=== PATIENT | male | born 1965 | race Caucasian/White ===

== ENCOUNTER 2019-01-16 12:45 | Emergency (ER) | payer SELFPAY ==
[2019-01-16 14:29] LABS: APPEARANCE,URINE CLEAR; BILIRUBIN,URINE NEGATIVE (NEGATIVE); COLOR,URINE COLORLESS; GLUCOSE, URINE NEGATIVE (NEGATIVE); KETONES,URINE NEGATIVE (NEGATIVE); LEUKOCYTE ESTERASE,URINE NEGATIVE (NEGATIVE); NITRITE,URINE NEGATIVE (NEGATIVE); PROTEIN,URINE NEGATIVE (NEGATIVE); URINE SPECIFIC GRAVITY 1.003; UROBILINOGEN,URINE NEGATIVE mg/dL (<2.0)
[2019-01-16 14:32] LABS: ABSOLUTE EOSINOPHILS # (AUTO) 0.1 10^3/uL (0.0-0.6); ABSOLUTE LYMPHOCYTES (AUTO) 2.1 10^3/uL (0.5-4.7); ABSOLUTE MONOCYTES (AUTO) 0.4 10^3/uL (0.1-1.4); ABSOLUTE NEUT (AUTO) 2.9 10^3/uL (1.7-8.2); BASOPHILS % (AUTO) 0.5 % (0-2); EOSINOPHILS % (AUTO) 1.9 % (0-6); HEMATOCRIT 42.8 % (37.9-51.0); HEMOGLOBIN 14.8 g/dL (13.5-17.0); LYMPHOCYTES % (AUTO) 38.3 % (13-45); MEAN CORPUSCULAR HEMOGLOBIN 30.6 pg (27.0-33.4); MEAN CORPUSCULAR HGB CONC 34.5 g/dL (32.0-36.0); MEAN CORPUSCULAR VOLUME 89 fl (80-97); MONOCYTES % (AUTO) 6.6 % (3-13); PLATELET COUNT 170 10^3/uL (150-450); RED BLOOD COUNT 4.81 10^6/uL (4.35-5.55); RED CELL DISTRIBUTION WIDTH 14.5 % (11.5-14.0); SEGMENTED NEUTROPHILS % (AUTO) 52.7 % (42-78); TOTAL CELLS COUNTED % (AUTO) 100 %; WHITE BLOOD COUNT 5.5 10^3/uL (4.0-10.5)
[2019-01-16 14:51] LABS: ALBUMIN 3.8 g/dL (3.5-5.0); ALKALINE PHOSPHATASE 66 U/L (38-126); ANION GAP 6 (5-19); ASPARTATE AMINO TRANSFERASE 33 U/L (17-59); BILIRUBIN,DIRECT 0.1 mg/dL (0.0-0.4); BILIRUBIN,TOTAL 0.4 mg/dL (0.2-1.3); BLOOD UREA NITROGEN 11 mg/dL (7-20); CALCIUM 9.2 mg/dL (8.4-10.2); CARBON DIOXIDE 25 mmol/L (22-30); CHLORIDE 107 mmol/L (98-107); GLUCOSE 87 mg/dL (75-110); POTASSIUM 3.8 mmol/L (3.6-5.0); TOTAL PROTEIN 6.5 g/dL (6.3-8.2)
[2019-01-16] MEDS ORDERED: KETOROLAC TROMETHAMINE 60 MG/2 ML SDV IM ONE (16:44)
--- NOTE | 2019-01-16 16:48 | ER Document Report ---
ED General Pain - General Chief Complaint: Low Back Pain Stated Complaint: BACK PAIN Time Seen by Provider: 01/16/19 16:14 Primary Care Provider: VIDA FENTON MD [Primary Care Provider] - Follow up as needed Mode of Arrival: Ambulatory Information source: Patient - HPI Patient complains to provider of: LBP Onset: Other - Pt. with h/o LBP with radiation into his R buttock and R upper leg for the past 2-3 days. Denies h/o trauma. No change in bowel or bladder habits - Related Data Allergies/Adverse Reactions: No Known Allergies Allergy (Verified 01/16/19 17:56) Home Medications: Plavix. coumadin. lisinopril. metoprolol. ASA 81. Paxil Past Medical History - General Information source: Patient - Social History Smoking Status: Current Every Day Smoker Chew tobacco use (# tins/day): No Frequency of alcohol use: Occasional Family History: Reviewed & Not Pertinent Patient has suicidal ideation: No Patient has homicidal ideation: No - Past Medical History Cardiac Medical History: Reports: Hx Heart Attack - With stent placement x4, Hx Hypertension Past Surgical History: Reports: Hx Cardiac Catheterization, Hx Cholecystectomy, Hx Pacemaker - Immunizations Immunizations up to date: Yes Review of Systems - Review of Systems Constitutional: No symptoms reported EENT: No symptoms reported Cardiovascular: No symptoms reported Respiratory: No symptoms reported Gastrointestinal: No symptoms reported Musculoskeletal: See HPI, Back pain Neurological/Psychological: No symptoms reported -: Yes All other systems reviewed and negative Physical Exam - Vital signs Vitals: Pulse Resp BP Pulse Ox 74 18 139/89 H 99 01/16/19 13:56 01/16/19 13:56 01/16/19 13:56 01/16/19 13:56 - General General appearance: Appears well In distress: None - Respiratory Respiratory status: No respiratory distress Breath sounds: Normal - Cardiovascular Rhythm: Regular Heart sounds: Normal auscultation Murmur: No - Abdominal Inspection: Normal Tenderness: Nontender - Back Back: Tender - there is min TTP of the R lumber spine diffusely with positive SLR at approx 45 degrees. N/V intact - Extremities General upper extremity: Normal inspection General lower extremity: Normal inspection - Neurological Neuro grossly intact: Yes Cognition: Normal Orientation: AAOx4 Speech: Normal Motor strength normal: LUE, RUE, LLE, RLE Sensory: Normal Course - Re-evaluation Re-evalutation: 01/16/19 18:09 pt's exam essentially unchanged from priors -- he has expressed desire to go home - Vital Signs Vital signs: Temp Pulse Resp BP Pulse Ox 97.3 F 69 16 154/90 H 99 01/16/19 17:54 01/16/19 17:54 01/16/19 17:54 01/16/19 17:54 01/16/19 17:54 - Laboratory Result Diagrams: 01/16/19 14:20 01/16/19 14:20 Laboratory results interpreted by me: 01/16/19 14:20 RDW 14.5 H - Diagnostic Test Radiology reviewed: Reports reviewed - plus degenerative arthritis of the lumbar spine and facet arthropathy Discharge - Discharge Clinical Impression: Lumbar radicular syndrome Condition: Stable Disposition: HOME, SELF-CARE Instructions: Ice Packs ([facility]), Low Back Pain ([facility]), Pain Medication Injection ([facility]), Oral Narcotic Medication ([facility]), Warm Packs ([facility]) Additional Instructions: rest, take meds as prescribed, return if worse Prescriptions: Methylprednisolone [Medrol Dosepack (4 mg/Tab) 21 Tab/Dosepak] 4 mg PO ASDIR PRN #21 tab.ds.pk PRN Reason: Tramadol HCl [Ultram] 50 mg PO BID #14 tablet Referrals: VIDA FENTON MD [Primary Care Provider] - Follow up as needed
--- NOTE | 2019-01-16 17:12 | RADIOLOGY REPORT (SQ) ---
EXAM DESCRIPTION: CT LUMBAR SPINE WITHOUT COMPLETED DATE/TIME: 01/16/2019 4:58 pm REASON FOR STUDY: LBP COMPARISON: None. TECHNIQUE: Axial images acquired through the lumbar spine without intravenous contrast. Images revi ewed with lung, soft tissue and bone windows. Reconstructed coronal and sagittal MPR images reviewed . All images stored on PACS. All CT scanners at this facility use dose modulation, iterative reconstruction, and/or weight based d osing when appropriate to reduce radiation dose to as low as reasonably achievable (ALARA). [facility]: Dose Right [facility]: CareDose [facility]: Dose Right [facility]: Teradose 4D [facility]: [employer] LIMITATIONS: None. FINDINGS: SEGMENTATION: There are 5 lumbar-type vertebral bodies. There is no transitional anatomy at the lumbosacral junction ALIGNMENT: Mild dextroconvex scoliotic curvature of the lumbar spine centered at L2-L3. There is no spondylolisthesis VERTEBRAL BODIES: The lumbar vertebral body heights are preserved. There is no fracture. DISCS: Spondylitic findings from L3-L4 to L5-S1 including narrowing of the intervertebral disc space, vacuum disc phenomenon, endplate sclerosis, endplate osteophyte formation, and a Schmorl's node at t he superior endplate of L4. PEDICLES, TRANSVERSE PROCESSES: Intact. FACETS, POSTERIOR ELEMENTS: No acute findings. HARDWARE: None. VISUALIZED RIBS: No fractures. SOFT TISSUES: Aneurysmal dilatation of the infrarenal abdominal aorta measuring up to 3.1 cm in AP di ameter. OTHER: Mild to moderate osteophytic foraminal stenosis at L5-S1. There is no high-grade spinal steno sis. IMPRESSION: 1. Degenerative spondylosis and facet arthropathy of the lumbar spine from L3-L4 to L5-S 1. There is no acute fracture or malalignment of the lumbar spine. 2. Aneurysmal dilatation of the infrarenal abdominal aorta measuring up to 3.1 cm and AP diameter. TECHNICAL DOCUMENTATION: JOB ID: [id number] Quality ID # [id number]: Final reports with documentation of one or more dose reduction techniques (e.g., Au tomated exposure control, adjustment of the mA and/or kV according to patient size, use of iterative reconstruction technique) 2010 [employer]- All Rights Reserved Reading location - IP/workstation name: [email or web address]
[2019-01-16 17:56] VITALS: BP 154/90
== END 2019-01-16 18:16 | disposition home or self-care (01) ==
LOC: ER 12:45
DX: M54.16 Radiculopathy, lumbar region (principal); F17.200 Nicotine dependence, unspecified, uncomplicated; I10 Essential (primary) hypertension; Z79.01 Long term (current) use of anticoagulants; Z79.82 Long term (current) use of aspirin; Z90.49 Acquired absence of other specified parts of digestive tract; Z95.0 Presence of cardiac pacemaker; I25.2 Old myocardial infarction
CPT/HCPCS: 99284; 96372; 36415; 85025; 80053; 81001; 72131; J1885

== ENCOUNTER 2019-02-12 18:40 | Emergency (ER) | payer SELFPAY ==
--- NOTE | 2019-02-12 19:47 | ER Document Report ---
ED Medical Screen (RME) - General Chief Complaint: Low Back Pain Stated Complaint: BACK PAIN,BLADDER ISSUES Time Seen by Provider: 02/12/19 19:40 Primary Care Provider: VIDA FENTON MD [Primary Care Provider] - Follow up as needed Notes: Patient is a 53-year-old male who presents the emergency department with a chief complaint of urinary problems. Patient states that he has had back pain for the past 3 weeks. Patient states that for the past 3 days he has had a little bit of inability to hold his urine. He is able to urinate, but is concurrent discerned about the dribbling. Patient states that he does have a little bit of numbness in his right leg, but denies any weakness. Patient has history of a CVA and is currently on Coumadin. Denies any fever. Denies history of IV drug use. Exam: Soft, nontender abdomen. Normal strength in bilateral lower extremities, but exam limited due to patient being in chair. Patient able to walk. I have greeted and performed a rapid initial assessment of this patient. A comprehensive ED assessment and evaluation of the patient, analysis of test results and completion of medical decision making process will be conducted by an additional ED providers. TRAVEL OUTSIDE OF THE [place] IN LAST 30 DAYS: No - Related Data Allergies/Adverse Reactions: No Known Allergies Allergy (Verified 01/16/19 17:56) Home Medications: plavix 75 mg qday. metoprolol 25 mg qday. lisinopril 20 mg qday. warfarin 15 mg qday. baby asa 81 mg qday Past Medical History - Social History Frequency of alcohol use: Occasional Drug Abuse: None - Past Medical History Cardiac Medical History: Reports: Hx Heart Attack - With stent placement x4, Hx Hypertension Past Surgical History: Reports: Hx Cardiac Catheterization, Hx Cholecystectomy, Hx Pacemaker - Immunizations Immunizations up to date: Yes Doctor's Discharge - Discharge Referrals: VIDA FENTON MD [Primary Care Provider] - Follow up as needed
[2019-02-12 20:12] LABS: AMORPHOUS SEDIMENT,URINE TRACE /HPF; APPEARANCE,URINE SLIGHTLY-CLOUDY; BILIRUBIN,URINE NEGATIVE (NEGATIVE); COLOR,URINE YELLOW; GLUCOSE, URINE NEGATIVE (NEGATIVE); KETONES,URINE NEGATIVE (NEGATIVE); PROTEIN,URINE NEGATIVE (NEGATIVE)
[2019-02-12 20:14] LABS: ABSOLUTE BASOPHILS # (AUTO) 0.1 10^3/uL (0.0-0.2); ABSOLUTE EOSINOPHILS # (AUTO) 0.1 10^3/uL (0.0-0.6); ABSOLUTE LYMPHOCYTES (AUTO) 2.6 10^3/uL (0.5-4.7); ABSOLUTE MONOCYTES (AUTO) 0.6 10^3/uL (0.1-1.4); ABSOLUTE NEUT (AUTO) 3.8 10^3/uL (1.7-8.2); BASOPHILS % (AUTO) 0.8 % (0-2); EOSINOPHILS % (AUTO) 1.5 % (0-6); LYMPHOCYTES % (AUTO) 36.5 % (13-45); MEAN CORPUSCULAR HEMOGLOBIN 30.7 pg (27.0-33.4); MEAN CORPUSCULAR VOLUME 90 fl (80-97); MONOCYTES % (AUTO) 7.8 % (3-13); PLATELET COUNT 167 10^3/uL (150-450); RED BLOOD COUNT 4.87 10^6/uL (4.35-5.55); RED CELL DISTRIBUTION WIDTH 14.4 % (11.5-14.0); SEGMENTED NEUTROPHILS % (AUTO) 53.4 % (42-78); TOTAL CELLS COUNTED % (AUTO) 100 %; WHITE BLOOD COUNT 7.2 10^3/uL (4.0-10.5)
--- NOTE | 2019-02-12 21:44 | ER Document Report ---
ED General - General Chief Complaint: Low Back Pain Stated Complaint: BACK PAIN,BLADDER ISSUES Time Seen by Provider: 02/12/19 19:40 Primary Care Provider: VIDA FENTON MD [Primary Care Provider] - Follow up as needed Notes: Patient is a 53-year-old male who comes emergency department for chief complaint of ongoing back pain, this is in the lower back usually worse on the right, occasionally he will get shooting pain or numbness on the right side but this is normal for him. He also states that over the past few days he has noticed he is able to urinate but sometimes he will have some dribbling or hesitancy. He denies dysuria. He denies abdominal or genital pain. He denies nausea or vomiting. He denies any new numbness, denies bowel incontinence, he is able to ambulate. He states that he has trouble sleeping because his back always hurts. He had a CT here last month but he is not sure of the results. Past medical history of CAD with stents on Coumadin and Plavix, AICD, cholecystectomy. TRAVEL OUTSIDE OF THE [place] IN LAST 30 DAYS: No - Related Data Allergies/Adverse Reactions: No Known Allergies Allergy (Verified 01/16/19 17:56) Home Medications: plavix 75 mg qday. metoprolol 25 mg qday. lisinopril 20 mg qday. warfarin 15 mg qday. baby asa 81 mg qday Past Medical History - General Information source: Patient - Social History Smoking Status: Current Every Day Smoker Frequency of alcohol use: Occasional Drug Abuse: None Lives with: Family Family History: Reviewed & Not Pertinent Patient has suicidal ideation: No Patient has homicidal ideation: No - Past Medical History Cardiac Medical History: Reports: Hx Heart Attack - With stent placement x4, Hx Hypertension Past Surgical History: Reports: Hx Cardiac Catheterization, Hx Cholecystectomy, Hx Pacemaker - Immunizations Immunizations up to date: Yes Review of Systems - Review of Systems Constitutional: No symptoms reported EENT: No symptoms reported Cardiovascular: No symptoms reported Respiratory: No symptoms reported Gastrointestinal: No symptoms reported Genitourinary: See HPI Male Genitourinary: See HPI Musculoskeletal: See HPI Skin: No symptoms reported Hematologic/Lymphatic: No symptoms reported Neurological/Psychological: No symptoms reported Physical Exam - Notes Notes: GENERAL: Alert, interacts well. Sleeping but easily aroused. Some discomfort with position changes but otherwise no signs of distress. HEAD: Normocephalic, atraumatic. EYES: Pupils equal, round, and reactive to light. Extraocular movements intact. ENT: Oral mucosa moist, tongue midline. Oropharynx unremarkable. Airway patent. NECK: Full range of motion. Supple. Trachea midline. LUNGS: Clear to auscultation bilaterally, no wheezes, rales, or rhonchi. No respiratory distress. HEART: Regular rate and rhythm. No murmur ABDOMEN: Soft, non-tender. Non-distended. GENITOURINARY: No tenderness or swelling EXTREMITIES: Moves all 4 extremities spontaneously. No edema, normal radial and dorsalis pedis pulses bilaterally. No cyanosis. BACK: Palpable tenderness along the right paralumbar musculature with tight muscle fibers. No cervical, thoracic, lumbar midline tenderness. No saddle anesthesia, normal distal neurovascular exam with good dorsalis pedis pulses bilaterally. Moves all extremities in full range of motion. Ambulates without difficulty. NEUROLOGICAL: Alert and oriented x3. Normal speech. Cranial nerves II through XII grossly intact. PSYCH: Normal affect, normal mood. SKIN: Warm, dry, normal turgor. No rashes or lesions noted. Course - Re-evaluation Re-evalutation: Patient was able to urinate for us without difficulty. He still is complaining of some hesitancy, I offered to check his prostate but he declined, he states he would rather be treated for this and follow-up with his primary care for additional testing and treatment of his prostate. Patient does not have any new symptoms in regards to his back, he did request a copy of his CT from last month, this does show 3.1 cm AAA and mild to moderate stenosis at L5-S1 with degenerative changes at L3-L4 as well. Patient does not have any injury, denies history of IV drug abuse, does not have fever, urinalysis unremarkable, CBC unremarkable, chemistry unremarkable. Patient is requesting Flexeril because he has had good results with this in the past. Patient was sleeping and easily aroused on my evaluation, he does have tenderness along the right paralumbar musculature without any neurological deficits at this time. He is able to ambulate. Low suspicion of aortic dissection or spinal cord compression based on his evaluation. Discussed strict follow-up and return precautions with patient at length. Patient states appreciation and agreement. - Laboratory Result Diagrams: 02/12/19 20:05 11/20/19 20:05 Laboratory results interpreted by me: 02/12/19 02/12/19 02/12/19 19:53 20:05 20:05 RDW 14.4 H Chloride 111 H Urine Urobilinogen 2.0 H Discharge - Discharge Clinical Impression: Urinary hesitancy Lower back pain Qualifiers: Chronicity: chronic Back pain laterality: right Sciatica presence: without sciatica Qualified Code(s): M54.5 - Low back pain Condition: Stable Disposition: HOME, SELF-CARE Additional Instructions: Your imaging last month and ongoing symptoms indicate chronic back pain with degenerative changes. Take the muscle ex as prescribed, apply heat to your lower back especially on the right, avoid lifting and twisting if possible. Take the report to your primary care for additional evaluation and management. Your laboratory work-up is reassuring, your symptoms are very suggestive of developing enlarged prostate. Take the Flomax as prescribed and follow-up with primary care for additional management of this as well. Come back if you worsen including severe worsening pain, fever, vomiting, new numbness, inability to urinate, losing control of your bowels, or any other concerning symptoms. Prescriptions: Cyclobenzaprine HCl [Flexeril 5 mg Tablet] 1 - 2 tab PO TID PRN #30 tablet PRN Reason: Tamsulosin HCl [Flomax 0.4 mg Cap.sr] 0.4 mg PO DAILY #14 cap.sr.24h Forms: Return to Work Referrals: VIDA FENTON MD [Primary Care Provider] - Follow up as needed
[2019-02-12 21:48] LABS: ALBUMIN 3.6 g/dL (3.5-5.0); ALKALINE PHOSPHATASE 66 U/L (38-126); ANION GAP 9 (5-19); ASPARTATE AMINO TRANSFERASE 21 U/L (17-59); BILIRUBIN,DIRECT 0.2 mg/dL (0.0-0.4); BILIRUBIN,TOTAL 0.4 mg/dL (0.2-1.3); BLOOD UREA NITROGEN 12 mg/dL (7-20); CALCIUM 9.5 mg/dL (8.4-10.2); CARBON DIOXIDE 22 mmol/L (22-30); CHLORIDE 111 mmol/L (98-107); GLUCOSE 88 mg/dL (75-110); POTASSIUM 3.9 mmol/L (3.6-5.0); TOTAL PROTEIN 6.4 g/dL (6.3-8.2)
[2019-02-12] MEDS ORDERED: HYDROCODONE/ACETAMINOPHEN 5-325 MG (6 TAB/ER DISP) PO PRN (22:01)
[2019-02-12] MEDS ORDERED: TAMSULOSIN HCL 0.4 MG CAP.SR.24H PO ONE (22:01)
[2019-02-12 22:43] VITALS: BP 150/87
== END 2019-02-12 22:42 | disposition home or self-care (01) ==
LOC: ER 18:40
DX: R39.11 Hesitancy of micturition (principal); M54.5 Low back pain; F17.200 Nicotine dependence, unspecified, uncomplicated; I10 Essential (primary) hypertension; Z79.01 Long term (current) use of anticoagulants; Z79.82 Long term (current) use of aspirin; I25.2 Old myocardial infarction; Z90.49 Acquired absence of other specified parts of digestive tract; Z95.810 Presence of automatic (implantable) cardiac defibrillator
CPT/HCPCS: 36415; 80053; 81001; 85025; 99283

== ENCOUNTER 2019-03-03 18:14 | Emergency (ER) | payer SELFPAY ==
--- NOTE | 2019-03-03 19:10 | ER Document Report ---
ED Medical Screen (RME) - General Chief Complaint: Leg Pain Stated Complaint: LEFT LEG PAIN Time Seen by Provider: 03/03/19 19:05 Primary Care Provider: VIDA FENTON MD [Primary Care Provider] - Follow up as needed Mode of Arrival: Ambulatory Information source: Patient Notes: 53-year-old male presented to ED for complaint of pain and swelling to the left thigh area. He states he does have a history of previous DVTs. He is on Plavix and Coumadin. He states he has had 2 heart attacks has forced cardiac stents had a stroke last year is on Plavix and Coumadin." History has been updated I have greeted and performed a rapid initial assessment of this patient. A comprehensive ED assessment and evaluation of the patient, analysis of test results and completion of medical decision making process will be conducted by an additional ED providers. TRAVEL OUTSIDE OF THE [place] IN LAST 30 DAYS: No - Related Data Allergies/Adverse Reactions: No Known Allergies Allergy (Verified 01/16/19 17:56) Past Medical History - Social History Cigarette use (# per day): Yes - Half pack a day Frequency of alcohol use: Occasional Drug Abuse: None Lives with: Family Family history: Reviewed & Not Pertinent - Past Medical History Cardiac Medical History: Reports: Hx Coronary Artery Disease, Hx DVT, Hx Heart Attack - With stent placement x4, Hx Hypercholesterolemia, Hx Hypertension Pulmonary Medical History: Reports: None EENT Medical History: Reports: None Neurological Medical History: Reports: Hx Cerebrovascular Accident - X1 in 2018 Endocrine Medical History: Reports: None Renal/ Medical History: Reports: None Malignancy Medical History: Reports None GI Medical History: Reports: None Musculoskeltal Medical History: Reports Hx Arthritis Skin Medical History: Reports None Psychiatric Medical History: Reports: None Traumatic Medical History: Reports: None Infectious Medical History: Reports: None Past Surgical History: Reports: Hx Cardiac Catheterization, Hx Cholecystectomy, Hx Coronary Stent - 4, Hx Pacemaker - Pacemaker defibrillator - Immunizations Immunizations up to date: No Hx Diphtheria, Pertussis, Tetanus Vaccination: No Physical Exam - Vital signs Vitals: Temp Pulse Resp BP Pulse Ox 97.9 F 87 18 153/89 H 100 03/03/19 18:18 03/03/19 18:18 03/03/19 18:18 03/03/19 18:18 03/03/19 18:18 Course - Vital Signs Vital signs: Temp Pulse Resp BP Pulse Ox 97.9 F 87 18 153/89 H 100 03/03/19 18:18 03/03/19 18:18 03/03/19 18:18 03/03/19 18:18 03/03/19 18:18 Doctor's Discharge - Discharge Referrals: VIDA FENTON MD [Primary Care Provider] - Follow up as needed
[2019-03-03 20:11] LABS: ABSOLUTE EOSINOPHILS # (AUTO) 0.2 10^3/uL (0.0-0.6); ABSOLUTE LYMPHOCYTES (AUTO) 3.3 10^3/uL (0.5-4.7); ABSOLUTE MONOCYTES (AUTO) 0.7 10^3/uL (0.1-1.4); ABSOLUTE NEUT (AUTO) 5.4 10^3/uL (1.7-8.2); BASOPHILS % (AUTO) 0.5 % (0-2); HEMATOCRIT 49.2 % (37.9-51.0); HEMOGLOBIN 16.8 g/dL (13.5-17.0); LYMPHOCYTES % (AUTO) 34.3 % (13-45); MEAN CORPUSCULAR HEMOGLOBIN 30.7 pg (27.0-33.4); MEAN CORPUSCULAR HGB CONC 34.3 g/dL (32.0-36.0); MEAN CORPUSCULAR VOLUME 90 fl (80-97); MONOCYTES % (AUTO) 7.4 % (3-13); PLATELET COUNT 175 10^3/uL (150-450); RED BLOOD COUNT 5.48 10^6/uL (4.35-5.55); SEGMENTED NEUTROPHILS % (AUTO) 55.8 % (42-78); TOTAL CELLS COUNTED % (AUTO) 100 %; WHITE BLOOD COUNT 9.6 10^3/uL (4.0-10.5)
[2019-03-03 20:17] LABS: INTERNATIONAL RATION (INR) 1.19; PROTHROMBIN TIME 15.2 SEC (11.4-15.4)
[2019-03-03 20:18] LABS: PARTIAL THROMBOPLASTIN TIME 32.3 SEC (23.5-35.8)
[2019-03-03 20:24] LABS: ALBUMIN 4.4 g/dL (3.5-5.0); ALKALINE PHOSPHATASE 66 U/L (38-126); ANION GAP 9 (5-19); ASPARTATE AMINO TRANSFERASE 22 U/L (17-59); BILIRUBIN,DIRECT 0.2 mg/dL (0.0-0.4); BILIRUBIN,TOTAL 0.4 mg/dL (0.2-1.3); BLOOD UREA NITROGEN 11 mg/dL (7-20); CALCIUM 9.6 mg/dL (8.4-10.2); CARBON DIOXIDE 26 mmol/L (22-30); CHLORIDE 105 mmol/L (98-107); GLUCOSE 82 mg/dL (75-110); POTASSIUM 3.9 mmol/L (3.6-5.0); TOTAL PROTEIN 7.4 g/dL (6.3-8.2)
--- NOTE | 2019-03-03 22:51 | ER Document Report ---
ED Extremity Problem, Lower - General Chief Complaint: Swelling of Lower Extremity Stated Complaint: LEFT LEG PAIN Time Seen by Provider: 03/03/19 19:05 Primary Care Provider: VIDA FENTON MD [Primary Care Provider] - Follow up as needed Mode of Arrival: Ambulatory Information source: Patient Notes: Mr. Plascencia is a 53 yo m w/ PMH tension, hyperlipidemia, CAD with [address], 2 previous MIs, previous stroke on chronic Plavix and Coumadin presenting to the ED for left upper thigh redness and tenderness. Patient states he noticed it yesterday when the dog was lying on his lap. It is primarily present the medial surface of his left thigh. Patient denies any lower extremity edema in either calf. He states that he was unsure what this was so he presented to the ED for evaluation. Patient states that he is currently taking both Plavix and Coumadin as well as a baby aspirin daily. He denies any missed doses of his Coumadin. Patient takes Coumadin 15 mg nightly. TRAVEL OUTSIDE OF THE [place] IN LAST 30 DAYS: No - Related Data Allergies/Adverse Reactions: No Known Allergies Allergy (Verified 01/16/19 17:56) Home Medications: Warfarin, Plavix Past Medical History - General Information source: Patient - Social History Smoking Status: Current Every Day Smoker Cigarette use (# per day): Yes - Half pack a day Frequency of alcohol use: Occasional Drug Abuse: None Lives with: Family Family History: Reviewed & Not Pertinent Patient has suicidal ideation: No Patient has homicidal ideation: No - Past Medical History Cardiac Medical History: Reports: Hx Coronary Artery Disease, Hx DVT, Hx Heart Attack - With stent placement x4, Hx Hypercholesterolemia, Hx Hypertension Pulmonary Medical History: Reports: None EENT Medical History: Reports: None Neurological Medical History: Reports: Hx Cerebrovascular Accident - X1 in 2018 Endocrine Medical History: Reports: None Renal/ Medical History: Reports: None Malignancy Medical History: Reports None GI Medical History: Reports: None Musculoskeletal Medical History: Reports Hx Arthritis Skin Medical History: Reports None Psychiatric Medical History: Reports: None Traumatic Medical History: Reports: None Infectious Medical History: Reports: None Past Surgical History: Reports: Hx Cardiac Catheterization, Hx Cholecystectomy, Hx Coronary Stent - 4, Hx Pacemaker - Pacemaker defibrillator - Immunizations Immunizations up to date: No Hx Diphtheria, Pertussis, Tetanus Vaccination: No Review of Systems - Review of Systems Constitutional: See HPI EENT: No symptoms reported Cardiovascular: No symptoms reported Respiratory: No symptoms reported Gastrointestinal: No symptoms reported Genitourinary: No symptoms reported Male Genitourinary: No symptoms reported Musculoskeletal: See HPI Skin: See HPI Hematologic/Lymphatic: No symptoms reported Neurological/Psychological: No symptoms reported Physical Exam - Vital signs Vitals: Temp Pulse Resp BP Pulse Ox 97.9 F 87 18 153/89 H 100 03/03/19 18:18 03/03/19 18:18 03/03/19 18:18 03/03/19 18:18 03/03/19 18:18 Interpretation: Hypertensive - General General appearance: Appears well, Alert - HEENT Head: Normocephalic, Atraumatic Eyes: Normal Pupils: PERRL - Respiratory Respiratory status: No respiratory distress Chest status: Nontender Breath sounds: Normal Chest palpation: Normal - Cardiovascular Rhythm: Regular Heart sounds: Normal auscultation Murmur: No - Abdominal Inspection: Normal Distension: No distension Bowel sounds: Normal Tenderness: Nontender Organomegaly: No organomegaly - Back Back: Normal, Nontender - Extremities General upper extremity: Normal inspection, Nontender, Normal color, Normal ROM, Normal temperature General lower extremity: Normal inspection, Nontender, Normal color, Normal ROM, Normal temperature, Normal weight bearing. No: Esha's sign - Neurological Neuro grossly intact: Yes Cognition: Normal Orientation: AAOx4 Shailesh Coma Scale Eye Opening: Spontaneous Shailesh Coma Scale Verbal: Oriented [place] Coma Scale Motor: Obeys Commands [place] Coma Scale Total: 15 Speech: Normal Motor strength normal: LUE, RUE, LLE, RLE Sensory: Normal - Psychological Associated symptoms: Normal affect, Normal mood - Skin Skin Temperature: Warm Skin Moisture: Dry Skin Color: Normal Skin irregularity: Erythema Location of irregularity: Extremities - Mild tenderness to palpation and erythema to the left medial thigh. No lower extremity edema in bilateral calf. Negative Homans sign bilaterally. Course - Re-evaluation Re-evalutation: Well-appearing nontoxic. Initial vitals notable for mildly elevated blood pressure. Differential diagnosis includes DVT, thrombophlebitis, cellulitis, contusion 03/03/19 23:01 CBC and CMP within normal limits. PT/INR is notable for a subtherapeutic INR of 1.19. Patient is adamant he has not missed any doses of his Coumadin takes 15 mg nightly. Ultrasound was performed from triage and does not show evidence of DVT. However it does show evidence of a superficial thrombophlebitis in the greater saphenous vein. Recommended that the patient double his Coumadin this evening and take a full 30 mg and then return back to 15 mg tomorrow evening. I recommended the patient call his primary care doctor as soon as possible to get a repeat INR performed sometime this week, before Sunday. Patient amenable to this plan. Patient's labs including INR will be printed for him and he will be provided with those results to go home with so he can follow-up. Patient given return precautions and instructed to double his Coumadin this evening and then return back to 15 mg over the next few days. - Vital Signs Vital signs: Temp Pulse Resp BP Pulse Ox 97.9 F 87 18 153/89 H 100 03/03/19 19:05 03/03/19 18:18 03/03/19 19:05 03/03/19 18:18 03/03/19 19:05 - Laboratory Result Diagrams: 03/03/19 19:47 03/03/19 19:47 Discharge - Discharge Clinical Impression: Superficial thrombophlebitis of left leg, Left thigh pain, Subtherapeutic international normalized ratio (INR) Condition: Good Disposition: HOME, SELF-CARE Instructions: Superficial Phlebitis ([facility]) Additional Instructions: Your INR is quite low today at 1.19. I would recommend that you double your Coumadin from your normal 15 mg to 30 mg this evening only. Sunday, you can return back to your nightly 15 mg as routine. I would also recommend that first and Sunday morning, you call your primary care doctor to have your INR rechecked sometime this week. They will be able to further guide you regarding your dosing of your Coumadin. Return to the ED if you have worsening pain, swelling or difficulty walking. Referrals: VIDA FENTON MD [Primary Care Provider] - Follow up as needed
[2019-03-04 00:45] VITALS: BP 148/83
--- NOTE | 2019-03-04 08:21 | XCELERA REPORT ---
[address] [address] Lower Extremity Venous Evaluation Procedure: Color flow and duplex imaging of the veins of the left lower extremity as well as the right Common Femoral vein. Right Sided Venous Evaluation The right common femoral vein is fully compressible. Spontaneous and phasic flow is present in the right common femoral vein. Left Sided Venous Evaluation Echogenic content, no flow in the Greater Saphenous vein, from knee to thigh, , also in Small Saphenous vein. Otherwise normal vessel filling wall to wall, compression and augmentation as well as Colour flow down to the infrageniculate veins. Interpretation Summary No duplex evidence of DVT or obstruction in the left lower extremity nor in the right Common Femoral vein. There is superficial phlebitis in the Greater and Small Saphenous veins on the left. Name: GUY GARCIA Age: 53 yrs Gender: Male : 1965 Patient Status: Emergency Patient Location: ER Study Date: 03/03/2019 08:49 PM Reason For Study: left lower leg pain and swelling hx dvt Ordering Physician: WILL SNYDER Performed By: Sena Jacob : WILL SNYDER > Josh Johnson
== END 2019-03-04 00:27 | disposition home or self-care (01) ==
LOC: ER 18:14
DX: I80.02 Phlebitis and thrombophlebitis of superficial vessels of left lower extremity (principal); M79.652 Pain in left thigh; I25.10 Atherosclerotic heart disease of native coronary artery without angina pectoris; I10 Essential (primary) hypertension; I25.2 Old myocardial infarction; Z86.73 Personal history of transient ischemic attack (TIA), and cerebral infarction without residual deficits; Z79.02 Long term (current) use of antithrombotics/antiplatelets; Z79.01 Long term (current) use of anticoagulants; Z79.82 Long term (current) use of aspirin; Z95.5 Presence of coronary angioplasty implant and graft; F17.210 Nicotine dependence, cigarettes, uncomplicated; Z95.810 Presence of automatic (implantable) cardiac defibrillator
CPT/HCPCS: 36415; 80053; 85025; 85610; 85730; 93971; 99284

== ENCOUNTER 2019-03-28 12:32 | Inpatient (IN) | payer OTHER ==
--- NOTE | 2019-03-28 13:25 | ER Document Report ---
ED Medical Screen (RME) - General Chief Complaint: Chest Pain Stated Complaint: CHEST PAIN Time Seen by Provider: 03/28/19 13:18 Primary Care Provider: VIDA FENTON MD [Primary Care Provider] - Follow up as needed Notes: Patient presents with chest pain that started yesterday with shortness of breath. Patient complains of increased pain with deep inspiration and cough. Patient states pain is been constant. Patient denies any fever nausea or vomiting. Patient does have a history of CAD with stents and a previous CVA. Patient is currently on Plavix, warfarin as well as aspirin. I have greeted and performed a rapid initial assessment of this patient. A comprehensive ED assessment and evaluation of the patient, analysis of test results and completion of the medical decision making process will be conducted by additional ED providers. TRAVEL OUTSIDE OF THE [place] IN LAST 30 DAYS: No - Related Data Allergies/Adverse Reactions: No Known Allergies Allergy (Verified 01/16/19 17:56) Home Medications: plavix toprol asa warfarin lisinopril Past Medical History - Social History Chew tobacco use (# tins/day): No Frequency of alcohol use: Occasional Drug Abuse: None Family history: Reviewed & Not Pertinent - Past Medical History Cardiac Medical History: Reports: Hx Coronary Artery Disease, Hx DVT, Hx Heart Attack - With stent placement x4, Hx Hypercholesterolemia, Hx Hypertension Neurological Medical History: Reports: Hx Cerebrovascular Accident - X1 in 2018 Musculoskeltal Medical History: Reports Hx Arthritis Past Surgical History: Reports: Hx Cardiac Catheterization, Hx Cholecystectomy, Hx Coronary Stent - 4, Hx Pacemaker - Pacemaker defibrillator - Immunizations Immunizations up to date: No Hx Diphtheria, Pertussis, Tetanus Vaccination: No Physical Exam - Vital signs Vitals: Temp Pulse Resp BP Pulse Ox 98.7 F 95 20 116/86 H 96 03/28/19 13:13 03/28/19 13:13 03/28/19 13:13 03/28/19 13:13 03/28/19 13:13 - Respiratory Respiratory status: No respiratory distress Chest status: Pain on movement, Pain with cough Chest palpation: Normal - Cardiovascular Rhythm: Regular Heart sounds: S1 appreciated, S2 appreciated Course - Vital Signs Vital signs: Temp Pulse Resp BP Pulse Ox 98.7 F 95 20 116/86 H 96 03/28/19 13:13 03/28/19 13:13 03/28/19 13:13 03/28/19 13:13 03/28/19 13:13 Doctor's Discharge - Discharge Referrals: VIDA FENTON MD [Primary Care Provider] - Follow up as needed
[2019-03-28 13:56] LABS: ABSOLUTE BASOPHILS # (AUTO) 0.1 10^3/uL (0.0-0.2); ABSOLUTE EOSINOPHILS # (AUTO) 0.1 10^3/uL (0.0-0.6); ABSOLUTE LYMPHOCYTES (AUTO) 2.4 10^3/uL (0.5-4.7); ABSOLUTE MONOCYTES (AUTO) 0.7 10^3/uL (0.1-1.4); ABSOLUTE NEUT (AUTO) 7.8 10^3/uL (1.7-8.2); BASOPHILS % (AUTO) 0.7 % (0-2); EOSINOPHILS % (AUTO) 0.6 % (0-6); HEMATOCRIT 48.5 % (37.9-51.0); HEMOGLOBIN 16.8 g/dL (13.5-17.0); LYMPHOCYTES % (AUTO) 21.7 % (13-45); MEAN CORPUSCULAR HEMOGLOBIN 30.6 pg (27.0-33.4); MEAN CORPUSCULAR HGB CONC 34.7 g/dL (32.0-36.0); MEAN CORPUSCULAR VOLUME 88 fl (80-97); MONOCYTES % (AUTO) 6.5 % (3-13); PLATELET COUNT 161 10^3/uL (150-450); RED CELL DISTRIBUTION WIDTH 13.5 % (11.5-14.0); SEGMENTED NEUTROPHILS % (AUTO) 70.5 % (42-78); TOTAL CELLS COUNTED % (AUTO) 100 %; WHITE BLOOD COUNT 11.1 10^3/uL (4.0-10.5)
[2019-03-28 14:06] LABS: INTERNATIONAL RATION (INR) 0.96; PROTHROMBIN TIME 12.7 SEC (11.4-15.4)
[2019-03-28 14:23] LABS: ALBUMIN 4.3 g/dL (3.5-5.0); ALKALINE PHOSPHATASE 78 U/L (38-126); ANION GAP 10 (5-19); ASPARTATE AMINO TRANSFERASE 21 U/L (17-59); BILIRUBIN,DIRECT 0.2 mg/dL (0.0-0.4); BILIRUBIN,TOTAL 0.8 mg/dL (0.2-1.3); BLOOD UREA NITROGEN 12 mg/dL (7-20); CALCIUM 9.7 mg/dL (8.4-10.2); CARBON DIOXIDE 25 mmol/L (22-30); CHLORIDE 103 mmol/L (98-107); GLUCOSE 91 mg/dL (75-110); POTASSIUM 4.5 mmol/L (3.6-5.0); TOTAL PROTEIN 7.2 g/dL (6.3-8.2)
[2019-03-28 14:35] LABS: NT PRO BNP 262 pg/mL (<125)
[2019-03-28 14:37] LABS: TROPONIN I < 0.012 ng/mL
--- NOTE | 2019-03-28 15:26 | RADIOLOGY REPORT (SQ) ---
EXAM DESCRIPTION: CHEST 2 VIEWS COMPLETED DATE/TIME: 03/28/2019 2:59 pm REASON FOR STUDY: cp COMPARISON: None. EXAM PARAMETERS: NUMBER OF VIEWS: two views TECHNIQUE: Digital Frontal and Lateral radiographic views of the chest acquired. RADIATION DOSE: NA LIMITATIONS: none FINDINGS: LUNGS AND PLEURA: Linear bibasilar opacities. No pleural effusion or pneumothorax. MEDIASTINUM AND HILAR STRUCTURES: No masses or contour abnormalities. HEART AND VASCULAR STRUCTURES: Heart normal size. No evidence for failure. BONES: No acute findings. HARDWARE: Left-sided cardiac pacer/defibrillator with leads overlying right atrium and right ventricl e. OTHER: No other significant finding. IMPRESSION: Linear bibasilar opacities, likely atelectasis/scarring although infection is another co nsideration. TECHNICAL DOCUMENTATION: JOB ID: [id number] [employer]- All Rights Reserved Reading location - IP/workstation name: [email or web address]
--- NOTE | 2019-03-28 18:06 | ER Document Report ---
ED General - General Chief Complaint: Chest Pain Stated Complaint: CHEST PAIN Time Seen by Provider: 03/28/19 13:18 Primary Care Provider: VIDA FENTON MD [Primary Care Provider] - Follow up as needed TRAVEL OUTSIDE OF THE [place] IN LAST 30 DAYS: No - Related Data Allergies/Adverse Reactions: No Known Allergies Allergy (Verified 01/16/19 17:56) Home Medications: plavix toprol asa warfarin lisinopril Past Medical History - Social History Smoking Status: Current Every Day Smoker Chew tobacco use (# tins/day): No Frequency of alcohol use: Occasional Drug Abuse: None Family History: Reviewed & Not Pertinent Patient has suicidal ideation: No Patient has homicidal ideation: No - Past Medical History Cardiac Medical History: Reports: Hx Coronary Artery Disease, Hx DVT, Hx Heart Attack - x2, With stent placement x4, Hx Hypercholesterolemia, Hx Hypertension Neurological Medical History: Reports: Hx Cerebrovascular Accident - X1 in 2018 Musculoskeletal Medical History: Reports Hx Arthritis Past Surgical History: Reports: Hx Cardiac Catheterization, Hx Cholecystectomy, Hx Coronary Stent - 4, Hx Pacemaker - Pacemaker defibrillator - Immunizations Immunizations up to date: No Hx Diphtheria, Pertussis, Tetanus Vaccination: No Physical Exam - Vital signs Vitals: Temp Pulse Resp BP Pulse Ox 98.7 F 95 20 116/86 H 96 03/28/19 13:13 03/28/19 13:13 03/28/19 13:13 03/28/19 13:13 03/28/19 13:13 - Notes Notes: Patient presents to the emergency department complaining of pain of the left anterior chest started yesterday about 24 hours ago. He was laying bed at the time. Pain began gradually got progressively worse. He describes as a pressure sensation but this is different from his previous VT and angina pain. He does have nitroglycerin to use for nitro but did not have it with him. Pain is constant and nonradiating. He was able to go to sleep and woke up this morning still with the pain but was able to go to work. He denies any nausea vomiting diaphoresis shortness of breath fevers or cough associated with this. Patient has a history of coronary artery disease with stents placed in and has not had any problems with his heart since then She also complaining of pain over the right lateral chest that came on acutely today while at work. Was not doing any any heavy lifting or bending at the time. Is sharp stabbing pain increases with breathing and movement. He has no shortness of breath with it he just feels like it hurts to take a deep breath. There is been no fevers or cough. Denies any recent travel or immobilization denies any trauma Past medical history significant for hypertension coronary artery disease with stents as well as a pacemaker defibrillator. He also has a history of CVA related to atrial fibrillation but has not had any additional episodes of A. fib currently on Coumadin for his A. fib. Has not taken his Coumadin on a regular basis he has no diabetes she of DVT in 2006 of unclear etiology Review of systems pertinent positives and negatives in HPI otherwise all the systems were reviewed and acutely negative no recent travel or immobilization PHYSICIAN EXAM -vital signs are noted triage note and note from triage reviewed GENERAL: Well-appearing, well-nourished and in _mild distress___from pain__ HEAD: Atraumatic, normocephalic. EYES: Pupils equal round and reactive to light, extraocular movements intact, sclera anicteric, conjunctiva are normal. ENT: nares patent, oropharynx clear without exudates. Moist mucous membranes. NECK: supple without lymphadenopathy LUNGS: Breath sounds clear to auscultation bilaterally and equal. No wheezes rales or rhonchi. No pain over the left anterior chest. He is got moderate pain over the lower right lateral chest wall extending over to the lower anterior chest that reproduces his pain. I see no crepitus or lesions. It is worse with breathing and even turning from side to side HEART: Regular rate and rhythm without murmurs ABDOMEN: Soft, nontender, normoactive bowel sounds. No tenderness to deep palpation right upper quadrant EXTREMITIES: No deformity, no edema. No palpable cords NEUROLOGICAL: No focal neurological deficits. Moves all extremities spontaneously and on command. PSYCH: Normal mood, normal affect. SKIN: Warm, Dry, normal turgor, no rashes or lesions noted. BACK-nontender in the midline Differential diagnosis pleurisy PE pneumonia coronary syndrome Course - Re-evaluation Re-evalutation: 03/28/19 22:11 ED patient is remained stable heart rate is come down his pulse ox is been good. Has required several doses of pain medication. Start him on heparin Medical decision making patient presents emerge department acute onset of right- sided chest pain with evidence of multiple PEs admission to the hospital. Discussed case with hospitalist who request consult with pulmonology. Consulted the transfer center advised and discussed case with the medical assistant instructor here who did not feel the patient needed be transferred at this time. He did recommend coagulation and an echo reconsult the hospitalist who is agreed for admission - Vital Signs Vital signs: Temp Pulse Resp BP Pulse Ox 98.1 F 80 24 H 134/79 H 94 03/28/19 20:02 03/28/19 20:02 03/28/19 21:01 03/28/19 21:01 03/28/19 21:01 - Laboratory Result Diagrams: 03/28/19 13:41 03/28/19 13:41 Laboratory results interpreted by me: 03/28/19 03/28/19 13:41 13:41 WBC 11.1 H NT-Pro-B Natriuret Pep 262 H - Diagnostic Test Radiology reviewed: Reports reviewed Radiology results interpreted by me: 03/28/19 22:12 Note is that we were not contacted regarding CT endings. The report says at 730 there was going to communicate this I reviewed the report at 830 - EKG Interpretation by Me Additional EKG results interpreted by me: 03/28/19 20:22 His initial EKG shows a sinus tachycardia with a rate of 100 with a left bundle branch block repeat EKG now shows a normal sinus rhythm with a left bundle and some LVH with strain which is also present on the first. He has no old EKGs for comparison 03/28/19 20:24 Critical Care Note - Critical Care Note Total time excluding time spent on procedures (mins): 75 Comments: Patient presents with acute onset of right-sided chest pain but also was complaining of pain in the left ear anterior chest clear history of atrial fibrillation and previous DVT as well as coronary disease concern at that time of possible PE possible acute coronary syndrome. He was found to have a extensive pulmonary emboli on CT. Audible multiple consultations and medical interventions and serial exams Discharge - Discharge Clinical Impression: History of atrial fibrillation Pulmonary embolus Qualifiers: Pulmonary embolism type: other Chronicity: acute Acute cor pulmonale presence: without acute cor pulmonale Qualified Code(s): I26.99 - Other pulmonary embolism without acute cor pulmonale Chest pain Qualifiers: Chest pain type: other chest pain Qualified Code(s): R07.89 - Other chest pain; R07.8 - Other chest pain Condition: Good Disposition: ADMITTED INPATIENT Admitting Provider: Greyson (Hospitalist) Unit Admitted: IMCU Referrals: VIDA FENTON MD [Primary Care Provider] - Follow up as needed
[2019-03-28] MEDS ORDERED: OXYCODONE-ACETAMINOPHEN 5-325 MG TABLET PO ONE (18:15)
--- NOTE | 2019-03-28 19:35 | RADIOLOGY REPORT (SQ) ---
EXAM DESCRIPTION: CTA CHEST COMPLETED DATE/TIME: 03/28/2019 7:19 pm REASON FOR STUDY: Chest pain COMPARISON: None. TECHNIQUE: CT scan of the chest performed using helical scanning technique with dynamic intravenous contrast injection. Images reviewed with lung, soft tissue and bone windows. Reconstructed coronal and sagittal MPR images reviewed. Additional 3 dimensional post-processing performed to develop Maximal Intensity Projection images (WA P). All images stored on PACS. All CT scanners at this facility use dose modulation, iterative reconstruction, and/or weight based d osing when appropriate to reduce radiation dose to as low as reasonably achievable (ALARA). [facility]: Dose Right [facility]: CareDose [facility]: Dose Right [facility]: Teradose 4D [facility]: [employer]k CONTRAST TYPE AND DOSE: contrast/concentration: Isovue 350.00 mg/ml; Total Contrast Delivered: 71.0 ml; Total Saline Delivered: 80.0 ml Contrast bolus optimized for the pulmonary arteries. Not diagnostic for the aorta. RENAL FUNCTION: GFR > 60. RADIATION DOSE: CT Rad equipment meets quality standard of care and radiation dose reduction techniq ues were employed. CTDIvol: 23.3 - 24.8 mGy. DLP: 819 mGy-cm. . LIMITATIONS: None. FINDINGS: LUNGS AND PLEURA: No pneumothorax. Multiple areas of right lower lobe segmental bronchial occlusion with endoluminal debris. Patchy airspace opacities are present in the right lower lobe. Increased interstitial -atelectatic changes are present in both lower lobes and right middle lobe. S mall areas of paraseptal emphysema are present in the right upper lobe. No pleural effusion. AORTA AND GREAT VESSELS: No aneurysm. Contrast bolus not optimized for the aorta. HEART: No pericardial effusion. No significant coronary artery calcifications. PULMONARY ARTERIES: Extensive emboli visualized in the right lower lobe pulmonary arteries. No other emboli identified. HILAR AND MEDIASTINAL STRUCTURES: No identified masses or abnormal nodes. HARDWARE: Cardiac defibrillator. UPPER ABDOMEN: No significant findings. Limited exam. THYROID AND OTHER SOFT TISSUES: No masses. No adenopathy. BONES: No acute finding. 3D MIPS: Confirm above findings. OTHER: No other significant finding. IMPRESSION: Extensive emboli visualized in the right lower lobe pulmonary arteries. Multiple areas of right lower lobe segmental bronchial occlusion with endoluminal debris. Patchy air space opacities are present in the right lower lobe. Increased interstitial -atelectatic changes are present in both lower lobes and right middle lobe. Small areas of paraseptal emphysema are present i n the right upper lobe. No pleural effusion. COMMENT: The findings were sent to the Radiology Results Communication Center at 19:28 on 03/28/2019 to be communicated to a licensed caregiver. Quality ID # [id number]: Final reports with documentation of one or more dose reduction techniques (e.g., Au tomated exposure control, adjustment of the mA and/or kV according to patient size, use of iterative reconstruction technique) TECHNICAL DOCUMENTATION: JOB ID: [id number] [place]-72 2010 [employer]- All Rights Reserved Reading location - IP/workstation name: [email or web address]
--- NOTE | 2019-03-28 19:40 | EKG REPORT ---
SEVERITY:- ABNORMAL ECG - SINUS TACHYCARDIA LEFT BUNDLE BRANCH BLOCK : Confirmed by: Sterling Segura MD 28-Mar-2019 19:39:27
[2019-03-28] MEDS ORDERED: HYDROMORPHONE HCL INJ/PF 2 MG/ML AMPULE IV ONE (19:41)
--- NOTE | 2019-03-28 19:41 | EKG REPORT ---
SEVERITY:- ABNORMAL ECG - SINUS RHYTHM LBBB CONSIDER ANTERIOR [place] : Confirmed by: Sterling Segura MD 28-Mar-2019 19:41:22
[2019-03-28] MEDS ORDERED: HEPARIN SOD (PORCINE) 1,000 UNIT/ML 10 ML VIAL IV ONE (20:34)
[2019-03-28] MEDS ORDERED: HEPARIN SODIUM,PORCINE/D5W 25,000 UNIT/250 ML RTUINJ IV PRN (20:34)
[2019-03-28] MEDS ORDERED: HEPARIN SOD (PORCINE) 1,000 UNIT/ML 10 ML VIAL IV PRN (21:30)
[2019-03-28 21:47] LABS: INTERNATIONAL RATION (INR) 1.03; PROTHROMBIN TIME 13.5 SEC (11.4-15.4)
[2019-03-28 21:48] LABS: PARTIAL THROMBOPLASTIN TIME 31.1 SEC (23.5-35.8)
[2019-03-28] MEDS: HYDROMORPHONE HCL INJ/PF 2 MG/ML AMPULE IV PRN (21:50)
[2019-03-28] MEDS ORDERED: MAGNESIUM HYDROXIDE SUSP 30 ML UDCUP PO PRN (22:13)
[2019-03-28] MEDS ORDERED: IPRATROPIUM/ALBUTEROL 0.5-2.5 MG/3 ML AMPUL NEB PRN (22:13)
[2019-03-28] MEDS ORDERED: MAG HYDROX/AL HYDROX/SIMETH SUSP 30 ML UDCUP PO PRN (22:13)
[2019-03-28] MEDS ORDERED: ENOXAPARIN SODIUM INJ 120 MG/0.8 ML DISP.SYRIN SUBCUT SCH (22:15)
[2019-03-29 00:14] LABS: APPEARANCE,URINE CLEAR; BILIRUBIN,URINE NEGATIVE (NEGATIVE); COLOR,URINE YELLOW; GLUCOSE, URINE NEGATIVE (NEGATIVE); KETONES,URINE NEGATIVE (NEGATIVE); LEUKOCYTE ESTERASE,URINE NEGATIVE (NEGATIVE); NITRITE,URINE NEGATIVE (NEGATIVE); PROTEIN,URINE 30 mg/dL (NEGATIVE)
[2019-03-29 00:20] LABS: URINE SPECIFIC GRAVITY > 1.060
[2019-03-29] MEDS: HYDROMORPHONE HCL INJ/PF 2 MG/ML AMPULE IV PRN ×2 (00:33→03:06)
[2019-03-29] MEDS ORDERED: INFLUENZA QUAD (6MOS+) 2019-20 VAC 0.5 ML SYR IM ONE (04:44)
--- NOTE | 2019-03-29 04:45 | PDOC H&P ---
History of Present Illness Admission Date/PCP: 03/28/19 22:39 VIDA FENTON MD Patient complains of: Right-sided chest pain History of Present Illness: GUY GARCIA is a 53 year old male with a past medical history of hypertension, coronary artery disease with stents, pacemaker, defibrillator, CVA, lower extremity DVT, atrial fibrillation with a regular use of Coumadin. He presents with sudden onset of sharp right-sided chest pain associated with shortness of breath prompting evaluation emergency room where he is found to have pulmonary emboli without hemodynamic instability or hypoxia. His INR is 0.9. He is started on heparin and referred to the hospitalist for admission. Patient denies lower extremity edema, prolonged travel or leg trauma. Past Medical History Cardiac Medical History: Reports: Coronary Artery Disease, DVT, Myocardial Infarction - x2, With stent placement x4, Hyperlipidema, Hypertension Musculoskeltal Medical History: Reports: Arthritis Past Surgical History Past Surgical History: Reports: Cardiac Catheterization, Cholecystectomy, Coronary Stent - 4, Pacemaker - Pacemaker defibrillator Social History Information Source: Patient Smoking Status: Current Every Day Smoker Cigarettes Packs Per Day: 0.5 Electronic Cigarette use?: No Number of Years Smokin Last Time Smoked: 03/28/2019 Frequency of Alcohol Use: Occasional Drugs: None - Advance Directive Resuscitation Status: Full Code Family History Family History: Hypertension. denies: Malignancy Parental Family History Reviewed: Yes Children Family History Reviewed: Yes Sibling(s) Family History Reviewed.: Yes Medication/Allergy Home Medications: Hydrocodone/Acetaminophen [[place] 5-325 mg Tablet] 1 tab PO Q6H #10 tablet 01/08/19 Methocarbamol [Robaxin 750 mg Tablet] 750 mg PO Q4 #30 tablet 01/08/19 Methylprednisolone [Medrol Dosepack (4 mg/Tab) 21 Tab/Dosepak] 4 mg PO ASDIR PRN #21 tab.ds.pk 01/16/19 Tramadol HCl [Ultram] 50 mg PO BID #14 tablet 01/16/19 Cyclobenzaprine HCl [Flexeril 5 mg Tablet] 1 - 2 tab PO TID PRN #30 tablet 02/12/19 Tamsulosin HCl [Flomax 0.4 mg Cap.sr] 0.4 mg PO DAILY #14 cap.sr.24h 02/12/19 Allergies/Adverse Reactions: No Known Allergies Allergy (Verified 01/16/19 17:56) Review of Systems Constitutional: ABSENT: chills, fever(s), headache(s), weight gain, weight loss Eyes: ABSENT: visual disturbances Ears: ABSENT: hearing changes Cardiovascular: ABSENT: chest pain, dyspnea on exertion, edema, orthropnea, palpitations Respiratory: ABSENT: cough, hemoptysis Gastrointestinal: ABSENT: abdominal pain, constipation, diarrhea, hematemesis, hematochezia, nausea, vomiting Genitourinary: ABSENT: dysuria, hematuria Musculoskeletal: ABSENT: joint swelling Integumentary: ABSENT: rash, wounds Neurological: ABSENT: abnormal gait, abnormal speech, confusion, dizziness, focal weakness, syncope Psychiatric: ABSENT: anxiety, depression, homidical ideation, suicidal ideation Endocrine: ABSENT: cold intolerance, heat intolerance, polydipsia, polyuria Hematologic/Lymphatic: ABSENT: easy bleeding, easy bruising Physical Exam Vital Signs: Temp Pulse Resp BP Pulse Ox 98.1 F 98 15 152/97 H 95 03/29/19 03:04 03/29/19 03:40 03/29/19 03:04 03/29/19 03:04 03/29/19 03:04 Intake & Output 03/27/19 03/28/19 03/29/19 11:59 11:59 11:59 Weight 108.5 kg General appearance: PRESENT: mild distress, well-developed, well-nourished Head exam: PRESENT: atraumatic, normocephalic Eye exam: PRESENT: conjunctiva pink, EOMI, PERRLA. ABSENT: scleral icterus Ear exam: PRESENT: normal external ear exam Mouth exam: PRESENT: moist, tongue midline Neck exam: ABSENT: carotid bruit, JVD, lymphadenopathy, thyromegaly Respiratory exam: PRESENT: crackles, rales, other - Right-sided splinting with pain. ABSENT: rhonchi, symmetrical, wheezes Cardiovascular exam: PRESENT: RRR, tachycardia. ABSENT: diastolic murmur, rubs, systolic murmur Pulses: PRESENT: normal dorsalis pedis pul Vascular exam: PRESENT: normal capillary refill GI/Abdominal exam: PRESENT: normal bowel sounds, soft. ABSENT: distended, guarding, mass, organolmegaly, rebound, tenderness Rectal exam: PRESENT: deferred Extremities exam: PRESENT: full ROM. ABSENT: calf tenderness, clubbing, pedal edema Neurological exam: PRESENT: alert, awake, oriented to person, oriented to place, oriented to time, oriented to situation, CN II-XII grossly intact. ABSENT: motor sensory deficit Psychiatric exam: PRESENT: appropriate affect, normal mood. ABSENT: homicidal ideation, suicidal ideation Skin exam: PRESENT: dry, intact, warm. ABSENT: cyanosis, rash Results Laboratory Results: 03/28/19 13:41 03/28/19 13:41 03/28/19 03/28/19 03/28/19 13:41 13:41 23:57 WBC 11.1 H RBC 5.50 Hgb 16.8 Hct 48.5 MCV 88 MCH 30.6 MCHC 34.7 RDW 13.5 Plt Count 161 Seg Neutrophils % 70.5 Sodium 137.7 Potassium 4.5 Chloride 103 Carbon Dioxide 25 Anion Gap 10 BUN 12 Creatinine 1.06 Est GFR ( Amer) > 60 Glucose 91 Calcium 9.7 Total Bilirubin 0.8 AST 21 Alkaline Phosphatase 78 Total Protein 7.2 Albumin 4.3 Urine Color YELLOW Urine Appearance CLEAR Urine pH 6.0 Ur Specific [place] > 1.060 Urine Protein 30 H Urine Glucose (UA) NEGATIVE Urine Ketones NEGATIVE Urine Blood NEGATIVE Urine Nitrite NEGATIVE Ur Leukocyte Esterase NEGATIVE Urine WBC (Auto) 0 Urine RBC (Auto) 1 03/28/19 03/28/19 13:41 17:08 Troponin I < 0.012 < 0.012 NT-Pro-B Natriuret Pep 262 H Impressions: Chest X-Ray 03/28/19 13:18 IMPRESSION: Linear bibasilar opacities, likely atelectasis/scarring although infection is another consideration. Chest/Abdomen CTA 03/28/19 18:16 IMPRESSION: Extensive emboli visualized in the right lower lobe pulmonary arteries. Multiple areas of right lower lobe segmental bronchial occlusion with endoluminal debris. Patchy airspace opacities are present in the right lower lobe. Increased interstitial -atelectatic changes are present in both lower lobes and right middle lobe. Small areas of paraseptal emphysema are present in the right upper lobe. No pleural effusion. Assessment and Plan - Diagnosis (1) Pulmonary embolus Qualifiers: Pulmonary embolism type: other Chronicity: acute Acute cor pulmonale presence: without acute cor pulmonale Qualified Code(s): I26.99 - Other pulmonary embolism without acute cor pulmonale Is this a current diagnosis for this admission?: Yes Plan: Hemodynamically stable, no hypoxia, supplemental oxygen, heparin, symptomatic management (2) Chest pain Qualifiers: Chest pain type: other chest pain Qualified Code(s): R07.89 - Other chest pain; R07.8 - Other chest pain Is this a current diagnosis for this admission?: Yes Plan: Secondary to #1, symptomatic management (3) History of atrial fibrillation Is this a current diagnosis for this admission?: Yes Plan: Rate controlled, heparin initiated. Education - Time Time Spent with patient: 25-34 minutes - Inpatient Certification Medical Necessity: Need Close Monitoring Due to Risk of Patient Decompensation
[2019-03-29 05:52] LABS: ANION GAP 9 (5-19); BLOOD UREA NITROGEN 15 mg/dL (7-20); CALCIUM 9.1 mg/dL (8.4-10.2); CARBON DIOXIDE 24 mmol/L (22-30); CHLORIDE 104 mmol/L (98-107); GLUCOSE 123 mg/dL (75-110); POTASSIUM 4.1 mmol/L (3.6-5.0)
[2019-03-29] MEDS: KETOROLAC TROMETHAMINE INJ/PF 30 MG/1 ML SDV IV PRN ×3 (06:50→19:25)
[2019-03-29 07:55] LABS: INTERNATIONAL RATION (INR) 1.06; PROTHROMBIN TIME 13.8 SEC (11.4-15.4)
[2019-03-29 07:57] LABS: PARTIAL THROMBOPLASTIN TIME 77.7 SEC (23.5-35.8)
[2019-03-29] MEDS: DOCUSATE SODIUM 100 MG CAPSULE PO SCH ×2 (10:02→17:21)
--- NOTE | 2019-03-29 11:28 | PDOC PROGRESS REPORT ---
Subjective Progress Note for:: 03/29/19 Subjective:: Patient still complains of pain in his right lower back which is pleuritic. States he was on Lovenox for 6 months for prior DVT few years ago. Reason For Visit: PE Physical Exam Vital Signs: Temp Pulse Resp BP Pulse Ox 98.3 F 89 16 120/74 95 03/29/19 07:32 03/29/19 07:32 03/29/19 07:32 03/29/19 07:32 03/29/19 07:32 Intake & Output 03/28/19 03/29/19 03/30/19 06:59 06:59 06:59 Intake Total 250 Balance 250 Weight 109.8 kg General appearance: PRESENT: no acute distress, cooperative Neck exam: ABSENT: JVD Respiratory exam: PRESENT: clear to auscultation [place], symmetrical, unlabored. ABSENT: tachypnea, wheezes Cardiovascular exam: PRESENT: RRR, +S1, +S2. ABSENT: tachycardia GI/Abdominal exam: PRESENT: normal bowel sounds, soft. ABSENT: rebound, rigid, tenderness Extremities exam: ABSENT: calf tenderness, pedal edema Neurological exam: PRESENT: alert, awake, oriented to person, oriented to place, oriented to time, oriented to situation Results Laboratory Results: 03/28/19 13:41 03/29/19 04:48 03/28/19 03/28/19 03/28/19 13:41 13:41 23:57 WBC 11.1 H RBC 5.50 Hgb 16.8 Hct 48.5 MCV 88 MCH 30.6 MCHC 34.7 RDW 13.5 Plt Count 161 Seg Neutrophils % 70.5 Sodium 137.7 Potassium 4.5 Chloride 103 Carbon Dioxide 25 Anion Gap 10 BUN 12 Creatinine 1.06 Est GFR ( Amer) > 60 Glucose 91 Calcium 9.7 Total Bilirubin 0.8 AST 21 Alkaline Phosphatase 78 Total Protein 7.2 Albumin 4.3 Urine Color YELLOW Urine Appearance CLEAR Urine pH 6.0 Ur Specific [place] > 1.060 Urine Protein 30 H Urine Glucose (UA) NEGATIVE Urine Ketones NEGATIVE Urine Blood NEGATIVE Urine Nitrite NEGATIVE Ur Leukocyte Esterase NEGATIVE Urine WBC (Auto) 0 Urine RBC (Auto) 1 03/29/19 04:48 WBC RBC Hgb Hct MCV MCH MCHC RDW Plt Count Seg Neutrophils % Sodium 137.1 Potassium 4.1 Chloride 104 Carbon Dioxide 24 Anion Gap 9 BUN 15 Creatinine 0.82 Est GFR ( Amer) > 60 Glucose 123 H Calcium 9.1 Total Bilirubin AST Alkaline Phosphatase Total Protein Albumin Urine Color Urine Appearance Urine pH Ur Specific [place] Urine Protein Urine Glucose (UA) Urine Ketones Urine Blood Urine Nitrite Ur Leukocyte Esterase Urine WBC (Auto) Urine RBC (Auto) 03/28/19 03/28/19 03/29/19 13:41 17:08 04:48 Troponin I < 0.012 < 0.012 < 0.012 NT-Pro-B Natriuret Pep 262 H Impressions: Chest X-Ray 03/28/19 13:18 IMPRESSION: Linear bibasilar opacities, likely atelectasis/scarring although infection is another consideration. Chest/Abdomen CTA 03/28/19 18:16 IMPRESSION: Extensive emboli visualized in the right lower lobe pulmonary arteries. Multiple areas of right lower lobe segmental bronchial occlusion with endoluminal debris. Patchy airspace opacities are present in the right lower lobe. Increased interstitial -atelectatic changes are present in both lower lobes and right middle lobe. Small areas of paraseptal emphysema are present in the right upper lobe. No pleural effusion. Assessment and Plan - Diagnosis (1) Pulmonary embolism and infarction Is this a current diagnosis for this admission?: Yes Plan: CTA image and result reviewed by me which shows PE in right lower lobe with some evidence of infarction and debris Changed to Lovenox with plan to transition to Xarelto Toradol as needed pain (2) History of atrial fibrillation Is this a current diagnosis for this admission?: Yes Plan: Continue metoprolol succinate. Patient states he takes warfarin for his A. fib however INR was 0.9 on presentation concerning for noncompliance or inadequacy of dosage. I will stop warfarin at this time as patient is on Lovenox every 12 and I do plan to transition to Xarelto. (3) CAD (coronary artery disease) Qualifiers: Coronary Disease-Associated Artery/Lesion type: [place] artery [place] vs. transplanted heart: [place] heart Associated angina: without angina Qualified Code(s): I25.10 - Atherosclerotic heart disease of [place] coronary artery without angina pectoris Is this a current diagnosis for this admission?: Yes Plan: History of CAD with stents few years ago C/w aspirin. Plavix on hold. On anticoagulation now. Continue metoprolol. - Time Time Spent with patient: 15-24 minutes
[2019-03-29] MEDS: ASPIRIN 81 MG TABLET, ENT COATED PO SCH (13:32)
[2019-03-29] MEDS: LISINOPRIL 10 MG TABLET PO SCH (13:32)
[2019-03-29] MEDS: ENOXAPARIN SODIUM INJ 120 MG/0.8 ML DISP.SYRIN SUBCUT SCH ×2 (13:32→22:35)
[2019-03-29] MEDS: ACETAMINOPHEN 325 MG TABLET PO PRN (19:23)
[2019-03-30] MEDS: ACETAMINOPHEN 325 MG TABLET PO PRN (01:35)
[2019-03-30] MEDS: KETOROLAC TROMETHAMINE INJ/PF 30 MG/1 ML SDV IV PRN ×3 (01:35→14:19)
[2019-03-30 08:53] LABS: CREATINE KINASE MB 0.87 ng/mL (<4.55)
[2019-03-30 08:54] LABS: TROPONIN I < 0.012 ng/mL
[2019-03-30] MEDS: LISINOPRIL 10 MG TABLET PO SCH (09:56)
[2019-03-30] MEDS: RIVAROXABAN 15 MG TABLET PO SCH ×2 (09:56→17:08)
[2019-03-30] MEDS: ASPIRIN 81 MG TABLET, ENT COATED PO SCH (09:57)
[2019-03-30] MEDS: DOCUSATE SODIUM 100 MG CAPSULE PO SCH ×2 (09:57→17:09)
[2019-03-30] MEDS ORDERED: METOPROLOL SUCCINATE 25 MG TAB.SR.24H PO SCH (10:00)
--- NOTE | 2019-03-30 10:01 | EKG REPORT ---
SEVERITY:- ABNORMAL ECG - SINUS RHYTHM LEFT BUNDLE BRANCH BLOCK CONISDER OLD ANTERIOR [place] : Confirmed by: Sterling Segura MD 30-Mar-2019 10:01:13
--- NOTE | 2019-03-30 10:04 | EKG REPORT ---
SEVERITY:- ABNORMAL ECG - SINUS RHYTHM LEFT BUNDLE BRANCH BLOCK NEW T IN[employer]ERSION ANTERIOR LEADS SINCE 03/28/2019 12:42 EKG. : Confirmed by: Sterling Segura MD 30-Mar-2019 10:03:43
--- NOTE | 2019-03-30 12:16 | PDOC PROGRESS REPORT ---
Subjective Progress Note for:: 03/30/19 Subjective:: Patient complains of some right-sided chest pain radiating to right shoulder. Chest pain is in his right lower rib around the site of the infarction. Reason For Visit: PE Physical Exam Vital Signs: Temp Pulse Resp BP Pulse Ox 98.1 F 77 16 121/73 95 03/30/19 08:15 03/30/19 08:15 03/30/19 08:15 03/30/19 08:15 03/30/19 08:15 Intake & Output 03/29/19 03/30/19 03/31/19 06:59 06:59 06:59 Intake Total 740 Balance 740 Weight 109.8 kg 109.2 kg General appearance: PRESENT: no acute distress, cooperative Neck exam: ABSENT: JVD Respiratory exam: PRESENT: chest wall tenderness - Right lower back/chest wall, clear to auscultation [place], symmetrical, unlabored. ABSENT: tachypnea, wheezes Cardiovascular exam: PRESENT: RRR, +S1, +S2. ABSENT: tachycardia GI/Abdominal exam: PRESENT: normal bowel sounds, soft. ABSENT: rebound, rigid, tenderness Neurological exam: PRESENT: alert, awake, oriented to person, oriented to place, oriented to time, oriented to situation Results Laboratory Results: 03/28/19 13:41 03/29/19 04:48 03/28/19 03/28/19 03/29/19 13:41 17:08 04:48 Creatine Kinase CK-MB (CK-2) Troponin I < 0.012 < 0.012 < 0.012 NT-Pro-B Natriuret Pep 262 H 03/30/19 03/30/19 07:55 07:55 Creatine Kinase 65 CK-MB (CK-2) 0.87 Troponin I < 0.012 NT-Pro-B Natriuret Pep Impressions: Chest X-Ray 03/28/19 13:18 IMPRESSION: Linear bibasilar opacities, likely atelectasis/scarring although infection is another consideration. Chest/Abdomen CTA 03/28/19 18:16 IMPRESSION: Extensive emboli visualized in the right lower lobe pulmonary a rteries. Multiple areas of right lower lobe segmental bronchial occlusion with endoluminal debris. Patchy airspace opacities are present in the right lower lobe. Increased interstitial -atelectatic changes are present in both lower lobes and right middle lobe. Small areas of paraseptal emphysema are present in the right upper lobe. No pleural effusion. Assessment and Plan - Diagnosis (1) Pulmonary embolism and infarction Is this a current diagnosis for this admission?: Yes Plan: CTA image and result reviewed by me which shows PE in right lower lobe with some evidence of infarction and debris Transition to Xarelto today 15 mg twice daily for 21 days then 20 mg nightly Still experiencing pain in his right lower chest wall radiating to the right shoulder which is likely from infarction in his right lower lobe secondary to PE with referred pain to the shoulder from diaphragmatic irritation. Toradol as needed pain (2) History of atrial fibrillation Is this a current diagnosis for this admission?: Yes Plan: Continue metoprolol succinate. Patient states he takes warfarin for his A. fib however INR was 0.9 on presentation concerning for noncompliance or inadequacy of dosage. Patient denies any history of mechanical heart valves. I have stopped warfarin completely and informed patient that he would only be taking the Xarelto (3) CAD (coronary artery disease) Qualifiers: Coronary Disease-Associated Artery/Lesion type: [place] artery [place] vs. transplanted heart: [place] heart Associated angina: without angina Qualified Code(s): I25.10 - Atherosclerotic heart disease of [place] coronary artery without angina pectoris Is this a current diagnosis for this admission?: Yes Plan: History of CAD with stents few years ago C/w aspirin. Plavix on hold. On anticoagulation now. Continue metoprolol. EKG shows LBBB which is likely chronic as troponins have all been negative. Patient does have a defibrillator. (4) Left bundle branch block Is this a current diagnosis for this admission?: Yes Plan: Chronic - Time Time Spent with patient: 15-24 minutes
[2019-03-30 17:34] VITALS: BP 136/85
--- NOTE | 2019-03-30 17:37 | PDOC DISCHARGE SUMMARY ---
Impression - Admit/DC Date/PCP Admission Date/Primary Care Provider: 03/28/19 22:39 VIDA FENTON MD Discharge Date: 03/30/19 - Discharge Diagnosis (1) Pulmonary embolism and infarction Is this a current diagnosis for this admission?: Yes (2) History of atrial fibrillation Is this a current diagnosis for this admission?: Yes (3) CAD (coronary artery disease) Is this a current diagnosis for this admission?: Yes (4) Left bundle branch block Is this a current diagnosis for this admission?: Yes - Assessment Summary: Patient presented with shortness of breath and lower right chest wall pain. Vital signs are stable and presentation. CTA of the chest revealed pulmonary embolism extensively involving the right lower lobe with some evidence of debris which I presume to be from lung infarction which is likely the cause of patient's right lower chest wall pain. Patient also experiencing some radiation to the right shoulder likely from diaphragmatic irritation of his pulmonary infarct. Patient was initially started on Lovenox and then transition to Xarelto today. He received Toradol for pain control. Of note, patient presented with an INR of 0.9. Patient however claims that he was taking his warfarin at home but states that he has not been able to check his INR as he was meant to and has not seen his doctor for an INR check in the past 2 months. Patient states that he takes the warfarin for atrial fibrillation and denies any history of mechanical heart valves or valvular disease. Patient acknowledges that his power switchboard operator placed him on warfarin, aspirin and Plavix. I have discontinued patient's warfarin and placed him on Xarelto instead as patient's subtherapeutic INR of 0.9 leads me to believe that patient has difficulty either with compliance with taking his medication or is having inadequate dosing of his warfarin and given the fact that he has not checked his INR in 2 months and his recurrent VTE event, he would be better served off warfarin. Patient is being discharged in safe stable conditions on Xarelto 15mg twice daily for 20 more days and then 20 mg daily from then henceforth. Patient will need lifelong anticoagulation given his A. fib and this being a recurrent VTE event. Also instructed patient to discuss with his primary power switchboard operator whether he needs to be on both aspirin Plavix in combination with an anticoagulant. - Additional Information Resuscitation Status: Full Code Discharge Diet: Cardiac Discharge Activity: Activity As Tolerated Referrals: VIDA FENTON MD [Primary Care Provider] - Prescriptions: Lidocaine [Lidoderm 5% (700 mg) Transdermal Patch] 1 patch TP DAILY #15 adh..patch Tramadol HCl [Ultram 50 mg Tablet] 50 mg PO Q8HP PRN #15 tablet PRN Reason: Home Medications: Aspirin [Adult Low Dose Aspirin EC] 81 mg PO DAILY 03/29/19 Clopidogrel Bisulfate [Plavix 75 mg Tablet] 75 mg PO DAILY 03/29/19 Lisinopril [Prinivil] 20 mg PO DAILY 03/29/19 Metoprolol Succinate [Toprol Xl 25 mg Tab.sr] 25 mg PO DAILY 03/29/19 Acetaminophen [Tylenol 325 mg Tablet] 650 mg PO Q4HP PRN tablet 03/30/19 Lidocaine [Lidoderm 5% (700 mg) Transdermal Patch] 1 patch TP DAILY #15 adh..patch 03/30/19 Rivaroxaban [Xarelto 15 mg Tablet] 15 mg PO BIDBS #0 tablet 03/30/19 Tramadol HCl [Ultram 50 mg Tablet] 50 mg PO Q8HP PRN #15 tablet 03/30/19 History of Present Illiness History of Present Illness: GUY GARCIA is a 53 year old male with a past medical history of hypertension, coronary artery disease with stents, pacemaker, defibrillator, CVA, lower extremity DVT, atrial fibrillation with a regular use of Coumadin. He presents with sudden onset of sharp right-sided chest pain associated with shortness of breath prompting evaluation emergency room where he is found to have pulmonary emboli without hemodynamic instability or hypoxia. His INR is 0.9. He is started on heparin and referred to the hospitalist for admission. Patient denies lower extremity edema, prolonged travel or leg trauma. Physical Exam Vital Signs: Temp Pulse Resp BP Pulse Ox 98.0 F 90 16 124/68 96 03/30/19 15:09 03/30/19 15:09 03/30/19 15:09 03/30/19 15:09 03/30/19 15:09 Intake & Output 03/29/19 03/30/19 03/31/19 06:59 06:59 06:59 Intake Total 740 50 Balance 740 50 Weight 109.8 kg 109.2 kg General appearance: PRESENT: no acute distress, cooperative Respiratory exam: PRESENT: chest wall tenderness, clear to auscultation [place] Results Laboratory Results: WBC 11.1 10^3/uL (4.0-10.5) H 03/28/19 13:41 RBC 5.50 10^6/uL (4.35-5.55) 03/28/19 13:41 Hgb 16.8 g/dL (13.5-17.0) 03/28/19 13:41 Hct 48.5 % (37.9-51.0) 03/28/19 13:41 MCV 88 fl (80-97) 03/28/19 13:41 MCH 30.6 pg (27.0-33.4) 03/28/19 13:41 MCHC 34.7 g/dL (32.0-36.0) 03/28/19 13:41 RDW 13.5 % (11.5-14.0) 03/28/19 13:41 Plt Count 161 10^3/uL (150-450) 03/28/19 13:41 Lymph % (Auto) 21.7 % (13-45) 03/28/19 13:41 [place] % (Auto) 6.5 % (3-13) 03/28/19 13:41 Eos % (Auto) 0.6 % (0-6) 03/28/19 13:41 Baso % (Auto) 0.7 % (0-2) 03/28/19 13:41 Absolute Neuts (auto) 7.8 10^3/uL (1.7-8.2) 03/28/19 13:41 Absolute Lymphs (auto) 2.4 10^3/uL (0.5-4.7) 03/28/19 13:41 Absolute Monos (auto) 0.7 10^3/uL (0.1-1.4) 03/28/19 13:41 Absolute Eos (auto) 0.1 10^3/uL (0.0-0.6) 03/28/19 13:41 Absolute Basos (auto) 0.1 10^3/uL (0.0-0.2) 03/28/19 13:41 Seg Neutrophils % 70.5 % (42-78) 03/28/19 13:41 PT 13.8 SEC (11.4-15.4) 03/29/19 07:40 INR 1.06 03/29/19 07:40 APTT 77.7 SEC (23.5-35.8) H 03/29/19 07:40 Sodium 137.1 mmol/L (137-145) 03/29/19 04:48 Potassium 4.1 mmol/L (3.6-5.0) 03/29/19 04:48 Chloride 104 mmol/L (98-107) 03/29/19 04:48 Carbon Dioxide 24 mmol/L (22-30) 03/29/19 04:48 Anion Gap 9 (5-19) 03/29/19 04:48 BUN 15 mg/dL (7-20) 03/29/19 04:48 Creatinine 0.82 mg/dL (0.52-1.25) 03/29/19 04:48 Est GFR ( Amer) > 60 (>60) 03/29/19 04:48 Est GFR (MDRD) Non-Af > 60 (>60) 03/29/19 04:48 Glucose 123 mg/dL (75-110) H 03/29/19 04:48 Calcium 9.1 mg/dL (8.4-10.2) 03/29/19 04:48 Total Bilirubin 0.8 mg/dL (0.2-1.3) 03/28/19 13:41 Direct Bilirubin 0.2 mg/dL (0.0-0.4) 03/28/19 13:41 Neonat Total Bilirubin Not Reportable 03/28/19 13:41 Neonat Direct Bilirubin Not Reportable 03/28/19 13:41 Neonat Indirect Bili Not Reportable 03/28/19 13:41 AST 21 U/L (17-59) 03/28/19 13:41 ALT 21 U/L (<50) 03/28/19 13:41 Alkaline Phosphatase 78 U/L (38-126) 03/28/19 13:41 Creatine Kinase 65 U/L (55-170) 03/30/19 07:55 CK-MB (CK-2) 0.87 ng/mL (<4.55) 03/30/19 07:55 Troponin I < 0.012 ng/mL 03/30/19 07:55 NT-Pro-B Natriuret Pep 262 pg/mL (<125) H 03/28/19 13:41 Total Protein 7.2 g/dL (6.3-8.2) 03/28/19 13:41 Albumin 4.3 g/dL (3.5-5.0) 03/28/19 13:41 Urine Color YELLOW 03/28/19 23:57 Urine Appearance CLEAR 03/28/19 23:57 Urine pH 6.0 (5.0-9.0) 03/28/19 23:57 Ur Specific [place] > 1.060 03/28/19 23:57 Urine Protein 30 mg/dL (NEGATIVE) H 03/28/19 23:57 Urine Glucose (UA) NEGATIVE mg/dL (NEGATIVE) 03/28/19 23:57 Urine Ketones NEGATIVE mg/dL (NEGATIVE) 03/28/19 23:57 Urine Blood NEGATIVE (NEGATIVE) 03/28/19 23:57 Urine Nitrite NEGATIVE (NEGATIVE) 03/28/19 23:57 Urine Bilirubin NEGATIVE (NEGATIVE) 03/28/19 23:57 Urine Urobilinogen 4.0 mg/dL (<2.0) H 03/28/19 23:57 Ur Leukocyte Esterase NEGATIVE (NEGATIVE) 03/28/19 23:57 Urine WBC (Auto) 0 /HPF 03/28/19 23:57 Urine RBC (Auto) 1 /HPF 03/28/19 23:57 Squamous Epi Cells Auto 1 /HPF 03/28/19 23:57 Urine Mucus (Auto) RARE /LPF 03/28/19 23:57 Urine Ascorbic Acid NEGATIVE (NEGATIVE) 03/28/19 23:57 03/28/19 03/28/19 03/29/19 13:41 17:08 04:48 CK-MB (CK-2) Troponin I < 0.012 < 0.012 < 0.012 NT-Pro-B Natriuret Pep 262 H 03/30/19 07:55 CK-MB (CK-2) 0.87 Troponin I < 0.012 NT-Pro-B Natriuret Pep Impressions: Chest X-Ray 03/28/19 13:18 IMPRESSION: Linear bibasilar opacities, likely atelectasis/scarring although infection is another consideration. Chest/Abdomen CTA 03/28/19 18:16 IMPRESSION: Extensive emboli visualized in the right lower lobe pulmonary arteries. Multiple areas of right lower lobe segmental bronchial occlusion with endoluminal debris. Patchy airspace opacities are present in the right lower lobe. Increased interstitial -atelectatic changes are present in both lower lobes and right middle lobe. Small areas of paraseptal emphysema are present in the right upper lobe. No pleural effusion. Plan Time Spent: Greater than 30 Minutes Stroke Is this a Stroke Patient?: No Acute Heart Failure - Is this a Heart Failure Patient?: No
== END 2019-03-30 17:51 | disposition home or self-care (01) | DRG 176 ==
LOC: ER 12:32 → EH 22:39 → 3N 03-29 04:05
PROVIDERS: ADMIT Internal Medicine; ATTEND Internal Medicine
DX: I26.99 Other pulmonary embolism without acute cor pulmonale (principal); I48.91 Unspecified atrial fibrillation; I25.10 Atherosclerotic heart disease of native coronary artery without angina pectoris; I44.7 Left bundle-branch block, unspecified; I10 Essential (primary) hypertension; E78.5 Hyperlipidemia, unspecified; M19.90 Unspecified osteoarthritis, unspecified site; F17.210 Nicotine dependence, cigarettes, uncomplicated; Z79.01 Long term (current) use of anticoagulants; Z79.82 Long term (current) use of aspirin; Z79.02 Long term (current) use of antithrombotics/antiplatelets; Z95.5 Presence of coronary angioplasty implant and graft; Z95.0 Presence of cardiac pacemaker; Z86.73 Personal history of transient ischemic attack (TIA), and cerebral infarction without residual deficits; Z86.718 Personal history of other venous thrombosis and embolism; I25.2 Old myocardial infarction; Z82.49 Family history of ischemic heart disease and other diseases of the circulatory system; Z23 Encounter for immunization
CPT/HCPCS: 36415; 71046; 71275; 80048; 80053; 81001; 82550; 82553; 83880; 84484; 85025; 85610; 85730; 90686; 93005; 93010; 94640; 96374; 96375; 99291; 99292; J1170; J1644; J1650; J1885; J7620